=== PATIENT | female | born 1965 | race Caucasian/White ===

== ENCOUNTER → 2024-05-27 09:55 | Outpatient (REF) | payer OTHER, SELFPAY | LOC: HWRAD 09:55 | PROVIDERS: ATTENDING PHYSICIAN Family Medicine | DX: K21.9 Gastro-esophageal reflux disease without esophagitis (principal); R94.5 Abnormal results of liver function studies | CPT/HCPCS: 76700 ==

== ENCOUNTER → 2024-06-30 20:00 | Outpatient (REF) | payer OTHER, SELFPAY | LOC: MRI 3T 20:00 | PROVIDERS: ATTENDING PHYSICIAN Family Medicine | DX: R93.5 Abnormal findings on diagnostic imaging of other abdominal regions, including retroperitoneum (principal); R79.89 Other specified abnormal findings of blood chemistry | CPT/HCPCS: 74183; A9575 ==

== ENCOUNTER → 2024-07-01 13:37 | Outpatient (REF) | payer OTHER, SELFPAY | LOC: HWRAD 13:37 | PROVIDERS: ATTENDING PHYSICIAN Family Medicine; REFERRING PHYSICIAN Student in an Organized Health Care Education/Training Program | DX: R10.31 Right lower quadrant pain (principal) | CPT/HCPCS: 76830; 76856 ==

== ENCOUNTER → 2025-01-26 10:42 | Outpatient (REF) | payer OTHER, SELFPAY | LOC: RCS 10:42 | PROVIDERS: ATTENDING PHYSICIAN Nuclear Medicine Nuclear Cardiology; FAMILY PHYSICIAN Family Medicine | DX: I10 Essential (primary) hypertension (principal); E78.2 Mixed hyperlipidemia; R07.9 Chest pain, unspecified; R06.02 Shortness of breath | CPT/HCPCS: 93017 ==

== ENCOUNTER → 2025-02-16 15:04 | Outpatient (REF) | payer OTHER, SELFPAY | LOC: HWWDC 15:04 | PROVIDERS: ATTENDING PHYSICIAN Family Medicine | DX: Z12.31 Encounter for screening mammogram for malignant neoplasm of breast (principal) | CPT/HCPCS: 77063; 77067 ==

== ENCOUNTER → 2025-04-13 14:26 | Outpatient (REF) | payer OTHER, SELFPAY | LOC: PAVMRI 14:26 | PROVIDERS: ATTENDING PHYSICIAN Family Medicine | DX: K76.9 Liver disease, unspecified (principal); R93.5 Abnormal findings on diagnostic imaging of other abdominal regions, including retroperitoneum | CPT/HCPCS: 74183; A9581 ==

== ENCOUNTER 2025-05-26 06:28 | Day surgery (SDC) | payer OTHER, SELFPAY | END 2025-05-26 12:12 | disposition home or self-care (01) | LOC: GI 06:28 | PROVIDERS: ATTENDING PHYSICIAN Internal Medicine Gastroenterology | DX: Z12.11 Encounter for screening for malignant neoplasm of colon (principal); K64.8 Other hemorrhoids; K64.4 Residual hemorrhoidal skin tags; K57.30 Diverticulosis of large intestine without perforation or abscess without bleeding; D17.5 Benign lipomatous neoplasm of intra-abdominal organs; R12 Heartburn; K31.7 Polyp of stomach and duodenum; K44.9 Diaphragmatic hernia without obstruction or gangrene; D12.5 Benign neoplasm of sigmoid colon; Z86.0101 Personal history of adenomatous and serrated colon polyps | CPT/HCPCS: 45385; 45380; 43239; 88305 ==

== ENCOUNTER 2025-09-14 14:30 | Emergency (ER) | payer OTHER, SELFPAY ==
[2025-09-14 14:36] VITALS: BP 132/87
[2025-09-14 15:06] LABS: Hematocrit 42.6 % (37.0-47.0); Hemoglobin 14.1 g/dL (12.0-16.0); Mean Corp Hgb Conc. 33.1 g/dL (33.0-37.0); Mean Corpuscular Volume 86.4 fL (81.0-99.0); Nucleated Red Blood Cells % 0 %; Platelet Count 339 10^3/uL (130-400); Red Cell Dist. Width 13.8 % (11.5-14.5); Urine Character Clear (Clear)
[2025-09-14 15:13] LABS: Urine Red Blood Cell 0-2 /HPF (0-2)
[2025-09-14 15:21] LABS: ALT (SGPT) 144 U/L (0-35); AST (SGOT) 115 U/L (14-36); Albumin 4.4 g/dl (3.5-5.0); Alkaline Phosphatase 87 U/L (38-126); Blood Urea Nitrogen 12 mg/dl (7-17); Calcium 8.9 mg/dl (8.4-10.2); Carbon Dioxide 28 mmol/L (22-30); Chloride 104 mmol/L (98-107); Glucose 86 mg/dl (70-99); Potassium 3.6 mmol/L (3.5-5.1); Sodium 140 mmol/L (135-145); Total Protein 7.8 g/dl (6.3-8.2); eGFR > 60.00
[2025-09-14 15:29] LABS: COVID-19 Antigen Negative (Negative)
[2025-09-14] MEDS: DELTASONE 50 MG PO (15:56)
[2025-09-14] MEDS: DUONEB 3 ML INH (15:56)
--- NOTE | 2025-09-14 16:21 | ED.GENMED ---
History of Present Illness
General
Chief Complaint: Cold/Flu/URI Symptoms
Source: patient
Exam Limitations: none
Time Seen by Provider: 09/14/25 15:42
History of Present Illness
History of Present Illness:
Patient has had about 4 days of cough congestion myalgias fatigue. Some bilateral low back pain. Started doxycycline but made her stomach nauseous. Started Z-Dajuan this morning. Cough is dry. No urinary symptoms. No flank pain.
Past History
Past History
ED Past Medical History: GERD and HTN
ED Past Surgical History: , Gynecological and Tonsilectomy
Phy Exam
Physical Exam
Physical Exam:
GENERAL: Alert and oriented in no apparent distress
EYE: Orbits normal.
NECK: Supple. Positive nasal congestion
CARDIAC: Regular rate and rhythm without any obvious murmurs.
LUNGS: Recurrent cough with diffuse expiratory wheezing greatest in the bases
ABDOMEN: Soft, without focal tenderness or distention
NEUROLOGICAL: Alert and oriented , grossly non-focal
SKIN: Warm and dry, no rash or lesion, no discoloration, skin intact.
MUSCULOSKELETAL: No edema,no deformity.Good color
PSYCH: Normal and appropriate interaction.
Course
Orders/Labs/Results
Orders:
Orders
09/14/25 14:50
COVID-19 Antigen Urgent
Source: Nasal Swab
Complete Blood Count/With Diff Urgent
Comprehensive Metabolic Panel Urgent
Urinalysis Reflex To Culture Urgent
Date Specimen was Collected: 09/14/25
Time Specimen was Collected: 14:43
Urine Microscopic Reflex Cult Urgent
Influenza A+B Rapid Molecular Urgent
RYAN Source: Nasal Swab
Specimen Description:
Date Specimen was Collected: 09/14/25
Time Specimen was Collected: 14:43
Urine Culture Urgent
RYAN Source: U
Specimen Description:
Date Specimen was Collected: 09/14/25
Time Specimen was Collected: 14:43
09/14/25 15:48
EKG [Electrocardiogram (*1)] Urgent
Reason for Study: Shortness of Breath
Ipratropium/Albuterol Sulfate [Duoneb] 3 ml INH R NOW ONE
Prednisone [Deltasone] 50 mg PO NOW STA
09/14/25 15:51
EKG- Treatment ONCE
CXR2 [CR Chest - 2 Views ] Urgent
Comment:
Reason For Exam: cough
Abnormal Lab Results
09/14/25
14:50
Absolute Monos (auto) 0.9 H 10^3/uL
(0.1-0.6)
Monocytes % 9.9 H %
(1.7-9.3)
AST 115 H U/L
(14-36)
ALT 144 H U/L
(0-35)
Leukocyte Esterase Rfl 1+ A
(Negative)
Urine Bacteria (Reflex) Few A
(Negative)
Urine Albumin (Reflex) 2+ A
(Neg - Trace)
09/14/25 14:50
09/14/25 14:50
Vital Signs
Initial and Last Documented VS:
Initial Vital Signs
Temp Pulse Resp BP Pulse Ox
99.5 F 87 18 132/87 97
09/14/25 14:36 09/14/25 14:36 09/14/25 14:36 09/14/25 14:36 09/14/25 14:36
Last Documented Vital Signs
Temp Pulse Resp BP Pulse Ox
99.5 F 87 18 132/87 97
09/14/25 14:36 09/14/25 14:36 09/14/25 14:36 09/14/25 14:36 09/14/25 16:22
MDM/Problems Addressed
Differential Diagnosis Includes:
Patient's back pain is bilateral very low back. No spinal tenderness. No CVA tenderness. Urinalysis likely negative. Do not feel this is a kidney issue. She is clearly describing respiratory symptoms. She has obvious nasal congestion she has
expiratory wheezing. Will treat with a DuoNeb steroids. Will discuss antibiotic choices. She does have a borderline QT interval likely okay for the azithromycin however. EKG is normal. I do not feel this is a cardiac issue.
*Radiology
Radiology exam reviewed: preliminary read by ED provider (Negative)
*Pulse Oximetry
SaO2: 97
Oxygen Mode of Delivery: Room air
Patient hypoxic: no
*EKG
Interpreted by ED Provider?: Yes
Interpretation: abnormal
Comparison EKG: no comparison EKG present
Heart Rate: 84
Rate: normal
Rhythm: sinus
[place]: normal axis
Interval: normal interval
QRS Pattern: normal QRS
Ischemia: no ischemia
*Critical Care Note
Total Time (30-74mins, 75-104mins- exclusive of procedures): Not Applicable
Update Note
Update Note:
Patient doing well. Still mild expiratory wheezing but felt it helped. She has a nebulizer at home. Will give albuterol for home. Also course of steroids. Azithromycin very reasonable but with the borderline QT will change to a cephalosporin
which she has tolerated in the past. Urinalysis has a few bacteria but likely negative study
ED Attending Note
-
Portions of this chart may have been created with voice recognition software.� Occasional wrong word or��sound alike� substitutions may have occurred due to the inherent limitations of voice recognition software.
Discharge Plan
Departure
Patient Disposition: Home (Routine Discharge)
Date of Disposition: 09/14/25
Time of Disposition: 16:42
Patient with high blood pressure during this ER visit?: Yes
Discharge Problem:
URI/bronchitis, Reactive airway component, Low back pain, Borderline QT prolongation, Elevated transaminases
Instructions: Acute Bronchitis, Adult (DC), Long QT syndrome, BLOOD PRESSURE
Prescriptions:
New
cefuroxime axetil 500 mg tablet
500 mg PO BID 7 Days Qty: 14 0RF
albuterol sulfate 2.5 mg /3 mL (0.083 %) solution for nebulization
2.5 mg inhalation Q4H PRN (Reason: shortness of breath or wheezing) Qty: 75 0RF
prednisone 50 mg tablet
50 mg PO DAILY Qty: 5 0RF
Referrals:
Mitchell Mark DO [Family Provider, Family Practice] - Follow up in 2-3 days
Stand Alone Forms: Return to Work
Activity Restrictions/Additional Instructions:
Your prescriptions were sent to your pharmacy
Follow-up your liver enzymes with your primary physician as we discussed
Interventions
Interventions:
*Risk Screen - Suicide Last Done: 09/14/25 14:36
*General Assessment Last Done: 09/14/25 14:36
*Nursing Disposition Last Done: 09/14/25 17:02
ED- Pulmonary Assessment Last Done: 09/14/25 15:18
Discharge Date and Time
Discharge Date/Time: 09/14/25 17:02
Print Language: SLOV[place]
== END 2025-09-14 17:02 | disposition home or self-care (01) ==
LOC: EMR 14:30
PROVIDERS: Student in an Organized Health Care Education/Training Program; EMERGENCY PHYSICIAN Emergency Medicine; FAMILY PHYSICIAN Family Medicine
DX: J06.9 Acute upper respiratory infection, unspecified (principal); J40 Bronchitis, not specified as acute or chronic; M54.50 Low back pain, unspecified; R74.01 Elevation of levels of liver transaminase levels; I10 Essential (primary) hypertension; K21.9 Gastro-esophageal reflux disease without esophagitis
CPT/HCPCS: 99284; 94640; 71046; 80053; 81003; 81015; 85025; 87086; 87502; 87811; 93005